=== PATIENT | male | born 1995 | race Hispanic/Latino ===

== ENCOUNTER 2021-07-10 18:30 | Emergency (ER) | payer SELFPAY ==
[2021-07-10 18:32] VITALS: BP 132/88; PULSE 64; RESP 16; TEMP 36.8; O2SAT 100
[2021-07-10] MEDS: LIDO 1%/EPINEPHRINE 1:100,000 20 ML VIAL (18:53)
--- NOTE | 2021-07-10 19:08 | ED.WOUNDLAC ---
HPI - Wound/Laceration General Chief Complaint: Wound/Laceration Stated Complaint: lac Time Seen by Provider: 07/10/21 18:33 History of Present Illness HPI narrative: Patient is a 26-year-old male who presents ER with laceration to left hand. Occurred shortly prior to arrival. He was working with barbed wire when he lacerated himself. His tetanus shot is up-to-date. He has no numbness or tingling. He maintains function his ability to move his hand and wrist. History taken through video translator/interpreter. Patient is right-hand dominant. 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 Related Data Allergies Allergy/AdvReac Type Severity Reaction Status Date / Time No Known Allergies Allergy Verified 07/10/21 18:31 Review of Systems Review of Systems: All systems reviewed & are unremarkable except as noted in HPI and below Constitutional: Constitutional: Denies chills, Denies fever(s) and Denies weakness Musculoskeletal: Musculoskeletal: Denies arthralgias and Denies joint swelling Integumentary/Breasts: Comments: Left hand laceration thenar eminence PMFSH Past Medical History Medical History (Updated 07/10/21 @ 19:52 by Eugene Strong MD) Healthy adult male Surgical History Surgical History (Updated 07/10/21 @ 19:45 by Eugene Strong MD) No pertinent past surgical history Social History Social History (Updated 07/10/21 @ 19:45 by Eugene Strong MD) Smoking status: Never smoker Exam Narrative: GENERAL: Well-appearing, well-nourished, and in no acute distress. HEAD: Normocephalic, atraumatic. HEART: Regular rate and rhythm. Normal peripheral pulses. EXTREMITIES: Focused exam left upper extremity reveals a 7.5 cm laceration over the thenar eminence of the lateral aspect of the hand MCP down to the wrist. There is exposure of muscle. Patient is able to flex and extend the thumb. He can perform opposition without issue. No range of motion deficit of the wrist. Neurovascular intact in the thumb. SKIN: Warm, dry, no rash. Laceration of hand. NEURO: No focal deficits. Alert and oriented x3. PSYCH: Normal mood and affect. Course Course Emergency Course: Patient resting comfortably. Wound irrigated copiously. No foreign body identified with direct visual evaluation. Dr. Soliz with hand surgery contacted. He will follow the patient up in clinic. He recommends antibiotics for home. Patient will be started on cephalexin. Wound has been repaired. Patient educated on return precautions. Vital Signs Vital signs: Vital Signs Temperature 98.3 F 07/10/21 18:32 Pulse Rate 64 07/10/21 18:32 Respiratory Rate 16 07/10/21 18:32 Blood Pressure 132/88 07/10/21 18:32 Pulse Oximetry 100 07/10/21 18:32 Temperature 98.3 F 07/10/21 18:32 Pulse Rate 64 07/10/21 18:32 Respiratory Rate 16 07/10/21 18:32 Blood Pressure 132/88 07/10/21 18:32 Pulse Oximetry 100 07/10/21 18:32 Procedures Laceration Laceration 1: Date: 07/10/21 Time: 19:40 Site: other (Left thenar eminence) Size (cm): 7.5 Description: linear and clean Depth: simple, single layer Local Anesthetic: with epi Amount of anesthesia used (mL): 8 Pre-repair: wound explored and irrigated extensively ====== Skin Level ====== Skin layer closed with: nylon Size (cm): 3-0 Number of sutures: 6 Technique: horizontal mattress and other (Additionally 3 sutures of nylon 4 oh were used to close the same wound.) ====== Subcutaneous Layer ====== ====== Muscle Layer ====== ====== Tendon Layer ====== Discharge Plan Discharge Clinical Impression: Laceration Patient Disposition: Home, Self-Care Condition: Stable Instructions: Care For Your Stitches (ED), Laceration (ED) Additional Instructions: Return the ER if you have increased pain in your hand, your hand or wrist becomes red and hot,
== END 2021-07-10 20:16 | disposition home or self-care (01) ==
PROVIDERS: Emergency Provider Emergency Medicine
DX: S61.412A Laceration without foreign body of left hand, initial encounter (principal); W26.8XXA Contact with other sharp object(s), not elsewhere classified, initial encounter
CPT/HCPCS: 12002; 99282